=== PATIENT | male | born 1995 | race Caucasian/White ===

== ENCOUNTER 2024-06-16 10:12 | Emergency (ER) | payer MEDICAID ==
[~2024-06-16] VITALS: Ht 188 cm; Wt 113.4 kg
--- NOTE | 2024-06-16 10:15 | NUR ---
PT STATES +N/ DENIES V/D; SKIN IS INTACT, PINK/WARM/DRY; AAOX4, PERRL, WITH EVEN AND STEADY GAIT; LUNGS CLEAR BL, BREATHING UNLABORED; HR EVEN AND REGULAR, BL PERIPHERAL PULSES PRESENT; BS ACTIVE X4, NO TENDERNESS TO PALPATION, NO HEPATOSPLENOMEGALLY PALPATED, RESONANT TO PERCUSSION; PT DENIES ANY FEVER, CP, SOB, OR COUGH AT THIS TIME; PT STATES 5/10 PAIN AT THIS TIME ; VSS; PATIENT POSITIONED FOR COMFORT; HOB ELEVATED; BEDRAILS UP X2; BED DOWN. CALL LIGHT WITHIN REACH NKA
[2024-06-16 10:34] VITALS: BP 132/76; PULSE 86; RESP 18; TEMP 98.4; O2SAT 96
[2024-06-16] MEDS ORDERED: LORA1T126 PO (10:56)
[2024-06-16] MEDS ORDERED: METO-486 PO (10:56)
[2024-06-16] MEDS ORDERED: AMOX-1230 PO (10:56)
[2024-06-16 11:09] VITALS: BP 132/78; PULSE 91; RESP 18; O2SAT 95
--- NOTE | 2024-06-16 11:12 | NUR ---
Patient discharged with v/s stable. Written and verbal after care instructions given and explained. Patient alert, oriented and verbalized understanding of instructions. Ambulatory with steady gait. All questions addressed prior to discharge. ID band removed. Patient advised to follow up with PMD. Rx of AMOXICILLIN, LORATADINE AND METOCLOPRAMIDE given. Patient educated on indication of medication including possible reaction and side effects. Opportunity to ask questions provided and answered.
== END 2024-06-16 11:12 | disposition home or self-care (01) ==
LOC: MED 10:12
DX: H66.92 Otitis media, unspecified, left ear (principal); H81.392 Other peripheral vertigo, left ear; Z79.2 Long term (current) use of antibiotics; Z79.899 Other long term (current) drug therapy
CPT/HCPCS: 99283